=== PATIENT | male | born 1975 | race Two or more races ===

== ENCOUNTER → 2017-11-01 20:15 | Outpatient (REF) | payer SELFPAY | LOC: LAB 20:15 | PROVIDERS: Visit Provider Nurse Practitioner Family ==

== ENCOUNTER 2018-03-24 10:07 | Inpatient (IN) ==
--- NOTE | 2018-03-24 10:35 | Emergency Department Note ---
ED Disposition Clinical Impression: Acute appendicitis Qualifiers: Acute appendicitis type: with localized peritonitis Qualified Code(s): K35.3 - Acute appendicitis with localized peritonitis Disposition: Admitted as Observation Condition on Discharge: Fair Instructions: DI for Acute Abdomen Additional Instructions: Discussed his case with Dr. Mandel who is the surgeon contract recruiter for today and he will see the patient in the emergency room and make the appropriate disposition Time of Disposition: 11:21 - Critical Care Critical Care Time: No Attestation: On , the high probability of a clinically significant, sudden or life threatening deterioration of the following system(s) required my full and direct attention, intervention and personal management. The time I documented below is in addition to time spent performing reported procedures but includes the following listed in this critical care notation. Medical Decision Making - Medical Records Medical records reviewed: Yes: I reviewed the patient's medical records. - Justen Inquiry Pt receiving controlled substance: No Justen was queried for this patient: No Vital Signs: 03/24/18 10:17 Temperature 98.2 F Temperature Source Oral Pulse Rate [Right Brachial] 95 H Respiratory Rate 16 Blood Pressure [Right Arm] 137/78 Blood Pressure Mean [Right Arm] 97 Blood Pressure Source [Right Arm] Automatic Cuff Blood Pressure Position [Right Arm] Sitting 02 Sat by Pulse Oximetry 100 Oxygen Delivery Method Room Air - Lab Data Lab results reviewed: Yes: I reviewed the patient's lab results. Lab Results 03/24/18 10:34: Urine Color Yellow, Urine Appearance Clear, Urine pH 6.0, Ur Specific [place] 1.010, Urine Protein Negative, Urine Glucose (UA) Negative, Urine Ketones Negative, Urine Blood 1+, Urine Nitrate Negative, Urine Bilirubin Negative, Urine Urobilinogen 0.2, Ur Leukocyte Esterase Negative, Urine RBC Occasional, Urine WBC Occasional, Urine Bacteria 2+, Urine Mucus 3+ 03/24/18 10:34: WBC 17.4 H, RBC 5.43, Hgb 16.7, Hct 49.8, MCV 91.7, MCH 30.8, MCHC 33.6, RDW 12.6, Plt Count 428 H, MPV 7.2 L, Neut % (Auto) 83.7 H, Lymph % ( Auto) 12.1, [place] % (Auto) 2.7, Eos % (Auto) 1.0, Baso % (Auto) 0.4, Neut # (Auto ) 14.6 H, Lymph # (Auto) 2.1, [place] # (Auto) 0.5, Eos # (Auto) 0.2, Baso # (Auto ) 0.1, Total Counted 100, Neutrophils % (Manual) 79 H, Lymphocytes % (Manual) 15 , Atypical Lymphs % 4.0, Monocytes % (Manual) 2, Platelet Estimate Normal, RBC Morphology Normal 03/24/18 10:34: Sodium 136, Potassium 4.2, Chloride 100, Carbon Dioxide 27, Anion Gap 13.2, BUN 11, Creatinine 1.04, Estimated Creat Clear 82, Estimated GFR 78, Est GFR ( Amer) 94, Glucose 128 H, Calcium 9.4 Result diagrams: 03/24/18 10:34 03/24/18 10:34 Orders (Tests/Meds): ED MEDICATIONS Generic Name Dose Route Start Last Admin Trade Name Freq PRN Reason Stop Dose Admin Sodium Chloride 1,000 mls @ 999 mls/hr 03/24/18 10:30 03/24/18 10:39 Sod Chlor 0.9% 1000ml Bag IV 03/24/18 11:30 999 mls/hr .Q1H1M ROZ Administration ORDERS Category Date Time Status CT abdomen pelvis wo con Stat Cat Scan 03/24/18 10:25 Taken Urine Culture Stat Micro 03/24/18 10:34 Received - CT Data CT Scan: Abdomen, Pelvis Time Received: 11:[address] Reviewed: Yes: I have reviewed the patient's CT results, I discussed the CT results w/the radiologist, I have viewed the radiologist's interpretation Findings Narrative: Patient has acute appendicitis Abdominal Pain HPI - General Chief Complaint: Abdominal Pain Stated Complaint: Abdominal pain Time Seen by Provider: 03/24/18 10:30 Mode of Arrival: Family Vehicle Limitations: No Limitations Description of Symptoms (Recalled from ER Triage Doc. by RN): C/O EPIGASTRIC PAIN LAST PM BUT TODAY HAS C/O RLQ TENDERNESS WITH PALPATION. DENIES N/V/D - History of Present Illness HPI narrative: Patient is a 41-year-old gentleman who comes in with complaints of epic epigastric pain that started 3 days ago last night however the pain moved into the right lower quadrant he has had no nausea vomiting or diarrhea and has had no fevers but comes to the emergency room today with pain primarily in the right lower quadrant with no rebound or guarding he is also afebrile complaint: abdominal pain Onset (ago): hour(s) Consistency: constant Location: RLQ Severity: moderate Severity scale (1-10): 5 - Related Data Home Medications Medication Instructions Recorded Confirmed No Known Home Medications 11/01/17 03/24/18 Allergies Allergy/AdvReac Type Severity Reaction Status Date / Time No Known Allergies Allergy Verified 11/01/17 18:05 [facility] History I have reviewed the patient's past medical history: Yes Medical History: Denies:: Cancer, Diabetes Mellitus Type 1, Diabetes Mellitus Type 2, MRSA Other Surgeries: Yes: No Previous Surgery Amputation: No - Social History Smoking Status: Never smoker Alcohol Intake: current Substance Use Type: denies use - Psychiatric History Expresses thoughts of harming self/others: None Suicide Plan Description: No Plan Family Hx:: Diabetes ROS Obtained: Yes All systems reviewed & no additional complaints - Constitutional Constitutional: Reports system reviewed and no additional complaints, except as docu, Reports as per HPI - Gastrointestinal Gastrointestingal: Reports: system reviewed and no additional complaints, except as docu, as per HPI Physical Exam - General General appearance: alert, in no apparent distress - Head Head exam: atraumatic - Eye Eye exam: Present: normal appearance - ENT ENT exam: Present: normal exam - Neck Neck exam: Present: normal inspection - Chest Chest inspection: Present: normal inspection - Respiratory Respiratory exam: Present: normal lung sounds bilaterally - Cardiovascular Cardiovascular exam: Present: regular rate, normal rhythm - Abdominal Exam Abdominal exam: Present: soft, normal bowel sounds Abdominal tenderness: Present: RLQ - Extremities Exam Extremities exam: Present: normal inspection - Neurological Exam Neurological exam: Present: alert, oriented X3
[2018-03-24 10:41] LABS: Microscopic, Urine URINE MICROSCOPIC (MICROSCOPIC)
[2018-03-24 10:44] LABS: Appearance,Urine CLEAR (Clear); Bilirubin,Urine Negative (Negative); Blood, Urine 1+ (Negative); Color,Urine YELLOW (Yellow); Glucose,Urine (UA) Negative (Negative); Ketones,Urine Negative (Negative); Leukocyte Esterase,Urine Negative (Negative); Protein,Urine Negative (Negative); Urobilinogen,Urine 0.2 EU/dl (0.2)
[2018-03-24 10:46] LABS: Basophils # 0.1 K/mm3 (0-0.2); Basophils % 0.4 % (0.1-2.0); Eosinophils # 0.2 K/mm3 (0.0-0.4); Hematocrit 49.8 % (42.0-52.0); Hemoglobin 16.7 g/dL (14.1-18.0); Lymphocytes # 2.1 K/mm3 (0.7-4.5); Lymphocytes % 12.1 K/mm3 (10-50); Mean Corpuscular HGB Conc 33.6 g/dL (31.8-35.4); Mean Corpuscular Hemoglobin 30.8 pg (27.0-31.2); Mean Corpuscular Volume 91.7 fl (80-94); Mean Platelet Volume 7.2 fl (7.4-10.4); Monocytes # 0.5 K/mm3 (0.1-1.0); Monocytes % 2.7 % (1.7-9.3); Neutrophils # 14.6 K/mm3 (1.8-7.8); Neutrophils % 83.7 % (37.0-80.0); Platelet Count 428 K/mm3 (142-424); Red Blood Count 5.43 M/mm3 (4.60-6.20); Red Cell Distribution Width 12.6 % (11.5-17.5); White Blood Count 17.4 K/mm3 (4.8-10.8)
[2018-03-24 10:52] LABS: Bacteria,Urine 2+ /lpf; Mucus,Urine 3+ /lpf; RBC,Urine Occasional #/hpf (0-3); WBC,Urine Occasional #/hpf (0-3)
[2018-03-24 10:53] LABS: Anion Gap 13.2 mEq/L (5-15); Calcium 9.4 mg/dL (8.5-10.1); Potassium 4.2 mmoL/L (3.5-5.1)
[2018-03-24 11:08] LABS: Lymphocytes % 15 % (10-50); Monocytes % 2 % (2-9); Neutrophils % 79 % (42-76); RBC Morphology Normal; Total Cells Counted 100
[2018-03-24 11:38] LABS: Activated Partial Thrombo Time 34.7 seconds (23.6-34.0); INR 1.31 (0.9-1.1); Prothrombin Time 13.4 seconds (9.4-11.8)
--- NOTE | 2018-03-24 12:08 | Progress Note ---
[facility] Anesthesia Checklist - Structural Data Admitted From: Home Planned Operative Procedure/s: appy Consent for Planned Operative Procedure(s) Verified: Yes - Airway Assessment C-Spine Mobility Assessed: Yes TMJ Mobility Assessed: Yes Dentition: Good Dentition - Neurological Assessment Level of Consciousness: Awake, Alert, Appropriate - Anesthesia Plan Anesthesia Risk discussed: Yes Anesthesia Plan: Verified ASA Class: I Anesthesia Type: General [facility] Anesthesia HX I have reviewed the patient's past medical history: Yes Medical History: Denies:: Cancer, Diabetes Mellitus Type 1, Diabetes Mellitus Type 2, MRSA Other Surgeries: Yes: No Previous Surgery Amputation: No *Family Hx:: Diabetes
--- NOTE | 2018-03-24 12:19 | History & Physical Report ---
HPI HPI: ABDOMINAL PAIN Patient is a 42-year-old male. He had developed midepigastric abdominal pain this morning. He presented to the emergency department where he was seen and evaluated. Found to have a mild leukocytosis. He had CT scan which revealed findings consistent with obvious appendicitis. Surgical consultation was obtained. Patient states that his symptoms have actually improved. [facility] History Medical History: Denies:: Cancer, Diabetes Mellitus Type 1, Diabetes Mellitus Type 2, MRSA Other Surgeries: Yes: No Previous Surgery Amputation: No - *Social History Smoking Status: Never smoker Alcohol Intake: current Substance Use Type: denies use - Psychiatric History Expresses thoughts of harming self/others: None Suicide Plan Description: No Plan *Family Hx:: Diabetes Review of Systems - Review of Systems Review of systems:: pertinent systems reviewed and negative unless documented below Meds Home Medications Medication Instructions Recorded Confirmed Type No Known Home Medications 11/01/17 03/24/18 History Allergies Allergy/AdvReac Type Severity Reaction Status Date / Time No Known Allergies Allergy Verified 11/01/17 18:05 Exam Vital signs and Labs for Last 24 Hours: Temp Pulse Resp BP Pulse Ox 98.2 F 85 18 145/80 100 03/24/18 10:17 03/24/18 11:46 03/24/18 11:46 03/24/18 11:46 03/24/18 11:46 Laboratory Results - last 24 hr 03/24/18 10:34: Urine Color Yellow, Urine Appearance Clear, Urine pH 6.0, Ur Specific [place] 1.010, Urine Protein Negative, Urine Glucose (UA) Negative, Urine Ketones Negative, Urine Blood 1+, Urine Nitrate Negative, Urine Bilirubin Negative, Urine Urobilinogen 0.2, Ur Leukocyte Esterase Negative, Urine RBC Occasional, Urine WBC Occasional, Urine Bacteria 2+, Urine Mucus 3+ 03/24/18 10:34: WBC 17.4 H, RBC 5.43, Hgb 16.7, Hct 49.8, MCV 91.7, MCH 30.8, MCHC 33.6, RDW 12.6, Plt Count 428 H, MPV 7.2 L, Neut % (Auto) 83.7 H, Lymph % ( Auto) 12.1, [place] % (Auto) 2.7, Eos % (Auto) 1.0, Baso % (Auto) 0.4, Neut # (Auto ) 14.6 H, Lymph # (Auto) 2.1, [place] # (Auto) 0.5, Eos # (Auto) 0.2, Baso # (Auto ) 0.1, Total Counted 100, Neutrophils % (Manual) 79 H, Lymphocytes % (Manual) 15 , Atypical Lymphs % 4.0, Monocytes % (Manual) 2, Platelet Estimate Normal, RBC Morphology Normal 03/24/18 10:34: Sodium 136, Potassium 4.2, Chloride 100, Carbon Dioxide 27, Anion Gap 13.2, BUN 11, Creatinine 1.04, Estimated Creat Clear 82, Estimated GFR 78, Est GFR ( Amer) 94, Glucose 128 H, Calcium 9.4 03/24/18 10:34: PT 13.4 H, INR 1.31 H, APTT 34.7 H I & O for Last 24 hours: Intake & Output 03/22/18 03/23/18 03/24/18 03/25/18 11:59 11:59 11:59 11:59 Weight 140 lb - Constitutional no acute distress - *Routine HEENT Exam Head: Present: normocephalic - *Routine Respiratory Exam Present: CTA bilaterally - *Routine Cardiovascular Exam Present: RRR - *Routine Abdominal Exam Present: soft, tenderness Comments: He does have some tenderness without guarding or rebound in the right lower quadrant. Results - Results Lab Results Last 24 Hours:: Laboratory Results - last 24 hr 03/24/18 10:34: Urine Color Yellow, Urine Appearance Clear, Urine pH 6.0, Ur Specific [place] 1.010, Urine Protein Negative, Urine Glucose (UA) Negative, Urine Ketones Negative, Urine Blood 1+, Urine Nitrate Negative, Urine Bilirubin Negative, Urine Urobilinogen 0.2, Ur Leukocyte Esterase Negative, Urine RBC Occasional, Urine WBC Occasional, Urine Bacteria 2+, Urine Mucus 3+ 03/24/18 10:34: WBC 17.4 H, RBC 5.43, Hgb 16.7, Hct 49.8, MCV 91.7, MCH 30.8, MCHC 33.6, RDW 12.6, Plt Count 428 H, MPV 7.2 L, Neut % (Auto) 83.7 H, Lymph % ( Auto) 12.1, [place] % (Auto) 2.7, Eos % (Auto) 1.0, Baso % (Auto) 0.4, Neut # (Auto ) 14.6 H, Lymph # (Auto) 2.1, Kay # (Auto) 0.5, Eos # (Auto) 0.2, Baso # (Auto ) 0.1, Total Counted 100, Neutrophils % (Manual) 79 H, Lymphocytes % (Manual) 15 , Atypical Lymphs % 4.0, Monocytes % (Manual) 2, Platelet Estimate Normal, RBC Morphology Normal 03/24/18 10:34: Sodium 136, Potassium 4.2, Chloride 100, Carbon Dioxide 27, Anion Gap 13.2, BUN 11, Creatinine 1.04, Estimated Creat Clear 82, Estimated GFR 78, Est GFR ( Amer) 94, Glucose 128 H, Calcium 9.4 03/24/18 10:34: PT 13.4 H, INR 1.31 H, APTT 34.7 H Assessment and Plan - Assessment and plan all Dx Assessment and Plan for all problems:: After examining the patient I reviewed his CT scan with the radiologist. He has findings consistent with obvious appendicitis with 13 mm thickened appendix with multiple appendicoliths and periappendiceal stranding. I discussed the nature of this condition with the patient and advocate appendectomy. Plan for laparoscopic with possibly open appendectomy.
--- NOTE | 2018-03-24 16:31 | Progress Note ---
[facility] Anesthesia Record Part I Intake, IV Amount: 3,200 Estimated blood loss (mL): 300 Urine output (mL): 800 Blood Pressure: 136/76 SaO2: 100 Pulse Rate: 95 Respiratory Rate: 12 Temperature: 98.2 F Patient is:: Drowsy, Stable Stable to PACU at:: 16:25
--- NOTE | 2018-03-24 16:31 | Progress Note ---
[facility] Anesthesia Record Part II Discharge Time: 16:55 Destination: floor PACU nurse assessment reviewed?: Yes Patient Condition:: Good Anesthesia Complications:: None
--- NOTE | 2018-03-24 16:39 | Operative Note ---
Date of procedure: 03/24/18 Pre-op Diagnosis:: Acute appendicitis Post-op Diagnosis:: Same Procedure performed:: 1. Laparoscopy 2. Open appendectomy 3. ileal cecal resection with ileocolonic anastomosis Surgeon:: Forrest Mandel MD EDI PROGRAMMER:: Fransisco Jimenez Anesthesia: GETA Estimated blood loss (mL): 100 Clinical Note:: Patient is a 42-year-old male. He had developed some epigastric tenderness for a couple of days. Became more severe. He had some migration to the right lower quadrant. He presented to the emergency department. He was seen and evaluated and found to have moderate leukocytosis. He had CT scan performed which revealed findings consistent with obvious significant acute appendicitis. Surgical consultation was obtained. Patient was seen and examined. Arrangements were made for emergent laparoscopic possibly open appendectomy. Operative findings:: He had a severely inflamed markedly thickened indurated suppurative appendicitis. Inflammation was down to and involving the cecum with a presumed very large palpable appendicolith impacted within the appendiceal orifice involving the cecum. Operative note:: Consent was obtained patient was taken to the operating room. He was given preoperative intravenous antibiotics. In the operating room he was placed in a supine position. General anesthesia was induced via endotracheal tube. Singh catheter was placed. Abdomen was prepped and draped in the standard surgical fashion. Subumbilical skin incision was made and will perform abdominal wall left Veress needle was inserted. CO2 pneumoperitoneum was achieved to 15 mmHg. 12 mm optical trocar was inserted at the umbilicus. Intraperitoneal contents were visualized. 5 mm trocar was inserted under laparoscopic visualization in the suprapubic location. Additional 5 mm trocar was inserted in the right upper abdomen. 10 mm laparoscope was replaced with a 5 mm angled laparoscope. Appendix was easily identified and found to be markedly thickened, edematous, indurated and suppurative. It was very tense and grasping the appendix with Cesar was quite difficult. Appendix was somewhat corkscrewed upon itself and creating almost an inflammatory masslike effect. Prolonged dissection was carried out with some blunt dissection of the peritoneal attachments and use of CRISTI ultrasonic harmonic eleazar. Prolonged dissection was carried out dissecting down to the base of the appendix. The appendiceal artery was cauterized with Cristi ultrasonic harmonic eleazar. The appendix was inflamed at its base and markedly thickened. Palpation laparoscopically revealed almost a masslike effect within the appendiceal orifice consistent with presumed large appendicolith impacted within the appendiceal orifice and involving the cecum. Attempt was made to place a stapler across this but the inflammatory process was too thickened and stapling would likely create bowel obstruction with occlusion of the ileocecal valve. Plan was made for conversion to open. Transverse right lower quadrant incision was performed. Dissection was carried down through subcutaneous tissues and Katharine's fascia using electrocautery. Muscle-splitting technique was used opening the external oblique muscle, internal oblique muscle, and transversalis muscle along the length of their fibers. Peritoneum was incised. The appendix was identified once again. Attempt was made to mobilize the cecum with some difficulty. Attempt was made at open appendectomy using the TX 60 B type stapling device to remove the appendix with a cuff of cecum. This resulted in suboptimal outcome with somewhat devitalized cecum and colon enterotomy. Plan was made to proceed with ileocecal resection. Incision was extended medially incising the skin and rectus fascia to allow for mobilization. The ileum and cecum were further mobilized incising the peritoneum along the lateral edge of the colon. The terminal ileum was divided with a KISHOR-75 type stapling device. The colonic mesentery was clamped divided and ligated with Vicryl ties with double ligation of the ileocecal vascular bundle using 0 Surgilon ties. Colon was divided at the proximal ascending colon region. A [id number], functional end-to-end, anastomosis was created with a KISHOR-75 type stapling device creating an ileocolic anastomosis. Suture was placed at the confluence of staple lines as well as the staple line angle using 3 oh Surgilon seromuscular sutures. Inspection was carried out and there was no evidence of any appreciable mesenteric defect which would be amenable to closure. The peritoneal cavity was then irrigated with copious amounts of warm saline. A #10 NAYLA drain was placed along the right colon near the anastomosis through an incision inferior to the transverse right lower quadrant incision. It was secured with a 3-0 nylon suture. Peritoneum was closed with running 2-0 Vicryl. Muscle layers including dorsalis muscle, internal oblique, external oblique, and anterior rectus fascia were closed with running 0 PDS in layers. Katharine's fascia was closed with running 2-0 Vicryl. Irrigation was performed between each layer. Fascia at the umbilicus was closed with a 0 Vicryl suture. All incisions were closed with 4-0 Monocryl in a subcuticular fashion. Steri-Strips and drains were applied. Condition: stable Disposition: PACU Specimens:: Appendix Ileocecal resection (cecum) Complications:: None immediately apparent
[2018-03-25 05:58] LABS: Basophils % 0.2 % (0.1-2.0); Eosinophils # 0.1 K/mm3 (0.0-0.4); Eosinophils % 0.4 % (0.1-12.0); Hematocrit 41.1 % (42.0-52.0); Lymphocytes # 1.4 K/mm3 (0.7-4.5); Lymphocytes % 9.5 K/mm3 (10-50); Mean Corpuscular HGB Conc 32.9 g/dL (31.8-35.4); Mean Corpuscular Hemoglobin 30.4 pg (27.0-31.2); Mean Corpuscular Volume 92.3 fl (80-94); Mean Platelet Volume 7.1 fl (7.4-10.4); Monocytes # 1.1 K/mm3 (0.1-1.0); Monocytes % 7.1 % (1.7-9.3); Neutrophils # 12.2 K/mm3 (1.8-7.8); Neutrophils % 82.8 % (37.0-80.0); Platelet Count 350 K/mm3 (142-424); Red Blood Count 4.45 M/mm3 (4.60-6.20); Red Cell Distribution Width 12.7 % (11.5-17.5); White Blood Count 14.7 K/mm3 (4.8-10.8)
[2018-03-25 06:04] LABS: Anion Gap 10.8 mEq/L (5-15); Potassium 3.8 mmoL/L (3.5-5.1)
[2018-03-25 06:09] LABS: Hemoglobin 13.5 g/dL (14.1-18.0)
[2018-03-25 06:19] LABS: Calcium 8.4 mg/dL (8.5-10.1)
--- NOTE | 2018-03-25 06:59 | Progress Note ---
Subjective Patient reports: still having pain Narrative: Patient having some pain. No nausea. NG functioning. Exam Vital signs and Labs for Last 24 Hours: Temp Pulse Resp BP Pulse Ox 98.3 F 98 H 16 106/68 99 03/25/18 04:00 03/25/18 04:00 03/25/18 04:00 03/25/18 04:00 03/25/18 04:00 Laboratory Results - last 24 hr 03/24/18 10:34: Urine Color Yellow, Urine Appearance Clear, Urine pH 6.0, Ur Specific [place] 1.010, Urine Protein Negative, Urine Glucose (UA) Negative, Urine Ketones Negative, Urine Blood 1+, Urine Nitrate Negative, Urine Bilirubin Negative, Urine Urobilinogen 0.2, Ur Leukocyte Esterase Negative, Urine RBC Occasional, Urine WBC Occasional, Urine Bacteria 2+, Urine Mucus 3+ 03/24/18 10:34: WBC 17.4 H, RBC 5.43, Hgb 16.7, Hct 49.8, MCV 91.7, MCH 30.8, MCHC 33.6, RDW 12.6, Plt Count 428 H, MPV 7.2 L, Neut % (Auto) 83.7 H, Lymph % ( Auto) 12.1, [place] % (Auto) 2.7, Eos % (Auto) 1.0, Baso % (Auto) 0.4, Neut # (Auto ) 14.6 H, Lymph # (Auto) 2.1, [place] # (Auto) 0.5, Eos # (Auto) 0.2, Baso # (Auto ) 0.1, Total Counted 100, Neutrophils % (Manual) 79 H, Lymphocytes % (Manual) 15 , Atypical Lymphs % 4.0, Monocytes % (Manual) 2, Platelet Estimate Normal, RBC Morphology Normal 03/24/18 10:34: Sodium 136, Potassium 4.2, Chloride 100, Carbon Dioxide 27, Anion Gap 13.2, BUN 11, Creatinine 1.04, Estimated Creat Clear 82, Estimated GFR 78, Est GFR ( Amer) 94, Glucose 128 H, Calcium 9.4 03/24/18 10:34: PT 13.4 H, INR 1.31 H, APTT 34.7 H 03/24/18 13:00: Urine Color Yellow, Urine Appearance Clear, Urine pH 6.0, Ur Specific [place] 1.010, Urine Protein Negative, Urine Glucose (UA) Negative, Urine Ketones Trace, Urine Blood Trace, Urine Nitrate Negative, Urine Bilirubin Negative, Urine Urobilinogen 0.2, Ur Leukocyte Esterase Negative, Urine WBC Occasional, Urine Bacteria Trace 03/25/18 05:44: WBC 14.7 H, RBC 4.45 L, Hgb 13.5 L D, Hct 41.1 L, MCV 92.3, MCH 30.4, MCHC 32.9, RDW 12.7, Plt Count 350, MPV 7.1 L, Neut % (Auto) 82.8 H, Lymph % (Auto) 9.5 L, [place] % (Auto) 7.1, Eos % (Auto) 0.4, Baso % (Auto) 0.2, Neut # (Auto) 12.2 H, Lymph # (Auto) 1.4, [place] # (Auto) 1.1 H, Eos # (Auto) 0.1 , Baso # (Auto) 0.0 03/25/18 05:44: Sodium 136, Potassium 3.8, Chloride 102, Carbon Dioxide 27, Anion Gap 10.8, BUN 7 D, Creatinine 0.96, Estimated Creat Clear 90, Estimated GFR 85, Est GFR ( Amer) 103, Glucose 151 H, Calcium 8.4 L D I & O for Last 24 hours: Intake & Output 03/22/18 03/23/18 03/24/18 03/25/18 11:59 11:59 11:59 11:59 Intake Total 4815 / 4815 Output Total 1600 / 1600 Balance 3215 / 3215 Weight 140 lb 142 lb 1 oz - *Routine Abdominal Exam Present: soft Comments: Dressings intact. NAYLA with serosanguineous drainage. Progress Note: A&P Assessment and Plan for All Diagnoses:: SHANNAN morfin. Continue IV Invanz for at least 5 days.
--- NOTE | 2018-03-25 07:26 | Pharmacy Consult Notes ---
[facility] Pharmacy VTE Monitoring - Patient Demographics Admission date: 03/24/18 Report Date: 03/25/18 Time: 07:26 Allergies/Adverse Reactions: Patient Allergies No Known Allergies Allergy (Verified 11/01/17 18:05) Height: 1.75 m Weight: 64.438 kg Patient Problems: Current Active Problems Acute appendicitis (Acute) - VTE Risk Labs: VTE Related Lab Results Hgb 13.5 g/dL (14.1-18.0) L D 03/25/18 05:44 Hct 41.1 % (42.0-52.0) L 03/25/18 05:44 Plt Count 350 K/mm3 (142-424) 03/25/18 05:44 PT 13.4 seconds (9.4-11.8) H 03/24/18 10:34 INR 1.31 (0.9-1.1) H 03/24/18 10:34 APTT 34.7 seconds (23.6-34.0) H 03/24/18 10:34 BUN 7 mg/dL (7-18) D 03/25/18 05:44 Creatinine 0.96 mg/dL (0.70-1.30) 03/25/18 05:44 Estimated Creat Clear 90 mL/min (0-300) 03/25/18 05:44 Was VTE Risk Assessment Performed: Yes VTE Score: 2 VTE Risk Level: Very Low Risk - Prophylaxis VTE Prophylaxis Ordered?: Yes Types of VTE Prophylaxis: TEDS Knee High Location of Applied Device: Bilateral Lower Extremeties - VTE Diagnosis Confirmed Treatment or plan recommended: Continue Current Treatment
[2018-03-26 06:34] LABS: Anion Gap 4.6 mEq/L (5-15); Potassium 3.6 mmoL/L (3.5-5.1)
[2018-03-26 06:35] LABS: Calcium 8.7 mg/dL (8.5-10.1)
[2018-03-26 06:43] LABS: Basophils # 0.1 K/mm3 (0-0.2); Basophils % 0.5 % (0.1-2.0); Eosinophils # 0.1 K/mm3 (0.0-0.4); Eosinophils % 0.6 % (0.1-12.0); Hematocrit 40.8 % (42.0-52.0); Hemoglobin 13.3 g/dL (14.1-18.0); Lymphocytes # 1.8 K/mm3 (0.7-4.5); Lymphocytes % 11.9 K/mm3 (10-50); Mean Corpuscular HGB Conc 32.7 g/dL (31.8-35.4); Mean Corpuscular Hemoglobin 30.4 pg (27.0-31.2); Mean Platelet Volume 7.4 fl (7.4-10.4); Monocytes # 0.9 K/mm3 (0.1-1.0); Neutrophils # 12.3 K/mm3 (1.8-7.8); Platelet Count 390 K/mm3 (142-424); Red Blood Count 4.39 M/mm3 (4.60-6.20); Red Cell Distribution Width 12.7 % (11.5-17.5); White Blood Count 15.2 K/mm3 (4.8-10.8)
--- NOTE | 2018-03-26 07:02 | Progress Note ---
Subjective Patient reports: no new complaints Exam Vital signs and Labs for Last 24 Hours: Temp Pulse Resp BP Pulse Ox 99.1 F 88 20 133/65 98 03/26/18 04:00 03/26/18 04:00 03/26/18 04:00 03/26/18 04:00 03/26/18 04:00 Laboratory Results - last 24 hr 03/26/18 06:06: WBC 15.2 H, RBC 4.39 L, Hgb 13.3 L, Hct 40.8 L, MCV 93.0, MCH 30.4, MCHC 32.7, RDW 12.7, Plt Count 390, MPV 7.4, Neut % (Auto) 81.0 H, Lymph % (Auto) 11.9, [place] % (Auto) 6.0, Eos % (Auto) 0.6, Baso % (Auto) 0.5, Neut # ( Auto) 12.3 H, Lymph # (Auto) 1.8, [place] # (Auto) 0.9, Eos # (Auto) 0.1, Baso # ( Auto) 0.1 03/26/18 06:06: Sodium 137, Potassium 3.6, Chloride 100, Carbon Dioxide 36 H D, Anion Gap 4.6 L, BUN 11 D, Creatinine 0.90, Estimated Creat Clear 96, Estimated GFR 92, Est GFR ( Amer) 111, Glucose 108 H, Calcium 8.7 I & O for Last 24 hours: Intake & Output 03/23/18 03/24/18 03/25/18 03/26/18 11:59 11:59 11:59 11:59 Intake Total 4815 / 4815 2673 / 2673 Output Total 2029 / 2029 2985 / 2985 Balance 2785 / 2785 -312 / -312 Weight 140 lb 142 lb 1 oz Microbiology Reports for the Last 24 Hours: Microbiology 03/24/18 10:34 Urine,Clean Catch Urine Culture - Preliminary NO GROWTH AFTER 24 HOURS - *Routine Abdominal Exam Present: soft Comments: Hypoactive bowel sounds. Progress Note: A&P Assessment and Plan for All Diagnoses:: NG with large output overnight (1700mL). No flatus. NAYLA with serosanguineous drainage. Will give cepacol for sore throat. Continue antibiotics.
[2018-03-26 09:58] LABS: Lymphocytes % 9 % (10-50); Monocytes % 15 % (2-9); Neutrophils % 75 % (42-76); Total Cells Counted 100
[2018-03-26 10:00] LABS: RBC Morphology Normal
--- NOTE | 2018-03-27 08:35 | Progress Note ---
Subjective Patient reports: no new complaints, no flatus Exam Vital signs and Labs for Last 24 Hours: Temp Pulse Resp BP Pulse Ox 98.4 F 93 H 18 116/63 97 03/27/18 07:28 03/27/18 07:28 03/27/18 07:28 03/27/18 07:28 03/27/18 07:28 Laboratory Results - last 24 hr 03/26/18 06:06: Total Counted 100, Neutrophils % (Manual) 75, Band Neutrophils % 1.0, Lymphocytes % (Manual) 9 L, Monocytes % (Manual) 15 H, Platelet Estimate Normal, RBC Morphology Normal I & O for Last 24 hours: Intake & Output 03/24/18 03/25/18 03/26/18 03/27/18 11:59 11:59 11:59 11:59 Intake Total 4815 / 4815 2673 / 2673 2970.3 / 2970.3 Output Total 2029 / 2029 2985 / 2985 205 / 5 Balance 2785 / 2785 -312 / -312 915.3 / 915.3 Weight 140 lb 142 lb 1 oz Microbiology Reports for the Last 24 Hours: Microbiology 03/24/18 10:34 Urine,Clean Catch Urine Culture - Final NO GROWTH AFTER 48 HOURS - *Routine Abdominal Exam Present: distended Comments: NAYLA with serosanguineous Progress Note: A&P Assessment and Plan for All Diagnoses:: Still with apparent ileus. High NG output yesterday. Minimal overnight. Will give simethicone and reglan.
--- NOTE | 2018-03-28 08:08 | Progress Note ---
Subjective Patient reports: feels better Narrative: Patient states he has had a couple of bowel movements. Minimal NG output. Exam Vital signs and Labs for Last 24 Hours: Temp Pulse Resp BP Pulse Ox 98.4 F 73 16 109/63 99 03/28/18 04:00 03/28/18 04:00 03/28/18 04:00 03/28/18 04:00 03/28/18 04:00 I & O for Last 24 hours: Intake & Output 03/25/18 03/26/18 03/27/18 03/28/18 11:59 11:59 11:59 11:59 Intake Total 4815 / 4815 2673 / 2673 2970.3 / 2970.3 Output Total 2029 / 2029 2985 / 2985 2055 / 2055 2235 / 2235 Balance 2785 / 2785 -312 / -312 915.3 / 915.3 -2235 / -2235 Weight 142 lb 1 oz - *Routine Abdominal Exam Present: soft Progress Note: A&P Assessment and Plan for All Diagnoses:: DC NG tube.
--- NOTE | 2018-03-28 09:54 | Progress Note ---
Internal Medicine - PN: Subj *Date: 03/28/18 *Time: 09:53 Exam Vital signs and Labs for Last 24 Hours: Temp Pulse Resp BP Pulse Ox 98.4 F 84 16 129/82 98 03/28/18 08:00 03/28/18 08:00 03/28/18 08:00 03/28/18 08:00 03/28/18 08:00 I & O for Last 24 hours: Intake & Output 03/25/18 03/26/18 03/27/18 03/28/18 23:59 23:59 23:59 23:59 Intake Total 2956 / 2956 3083.3 / 3083.3 1219 / 1219 0 / 0 Output Total 3225 / 3225 3635 / 3635 2185 / 2185 210 / 210 Balance -269 / -269 -551.7 / -551.7 -966 / -966 -210 / -210 Weight 64.438 kg The patient's infection will respond to the chosen ABx?: Yes Is the patient receiving the right drug, dose, and route?: Yes Could a more targeted ABx be ordered?: No
[2018-03-29 11:47] VITALS: BP 126/77
== END 2018-03-29 14:35 | disposition home or self-care (01) ==
LOC: ER 10:07 → SDC 12:09 → 2ND 16:37
PROVIDERS: ADMIT Surgery; ATTEND Surgery

== ENCOUNTER → 2018-07-31 07:07 | Outpatient (CLI) | payer OTHER, SELFPAY ==
[2018-08-03 21:44] LABS: H. pylori Stool Ag, EIA Positive (Negative)
== END ==
PROVIDERS: Visit Provider Surgery
DX: R10.9 Unspecified abdominal pain (principal)
CPT/HCPCS: 87338

== ENCOUNTER → 2018-09-01 07:36 | Outpatient (CLI) | payer OTHER, SELFPAY ==
[2018-09-01 07:43] LABS: Adenovirus F 40/41, stool Not Detected (NotDetected); Astrovirus Not Detected (NotDetected); Campylobacter Not Detected (NotDetected); Clostridium Difficile A/B, PCR Not Detected (NotDetected); Cryptosporidium Not Detected (NotDetected); Cyclospora Cayetanesis Not Detected (NotDetected); Entamoeba histolytica Not Detected (NotDetected); Enteroaggregative E coli Not Detected (NotDetected); Enteropathogenic E coli Not Detected (NotDetected); Enterotoxigenic E coli Not Detected (NotDetected); Giardia lamblia Not Detected (NotDetected); Norovirus Not Detected (NotDetected); Plesimonas Shigalloides, PCR Not Detected (NotDetected); Rotavirus A Not Detected (NotDetected); Salmonella, PCR Not Detected (NotDetected); Sapovirus Not Detected (NotDetected); Shiga-like toxin E coli Not Detected (NotDetected); Shigella Enterovasive E coli Not Detected (NotDetected); Vibrio Cholerae Not Detected (NotDetected); Vibrio, PCR Not Detected (NotDetected); Yersinia Entercolitica, PCR Not Detected (NotDetected)
== END ==
PROVIDERS: Visit Provider Surgery
DX: K27.9 Peptic ulcer, site unspecified, unspecified as acute or chronic, without hemorrhage or perforation (principal)
CPT/HCPCS: 87507

== ENCOUNTER → 2018-09-22 14:26 | Outpatient (CLI) | payer OTHER, SELFPAY ==
[2018-09-25 09:42] LABS: H. pylori Breath Test Negative (Negative)
== END ==
PROVIDERS: Visit Provider Surgery
DX: R10.11 Right upper quadrant pain (principal)
CPT/HCPCS: 83013

== ENCOUNTER → 2021-09-23 12:00 | Outpatient (CLI) | payer OTHER, SELFPAY ==
[2021-09-24 16:10] LABS: H. pylori Breath Test Negative (Negative)
== END ==
PROVIDERS: Visit Provider Nurse Practitioner Family
DX: R10.84 Generalized abdominal pain (principal)
CPT/HCPCS: 83013

== ENCOUNTER → 2021-11-15 16:41 | Outpatient (CLI) | payer SELFPAY | PROVIDERS: PCP Nurse Practitioner Family; Visit Provider Surgery | DX: Z01.812 Encounter for preprocedural laboratory examination (principal); Z11.52 Encounter for screening for COVID-19 ==

== ENCOUNTER 2021-11-17 12:17 | Day surgery (SDC) | payer OTHER, SELFPAY ==
[2021-11-15 17:30] VITALS: BMI 22.1
[2021-11-15 17:37] LABS: Coronavirus 19, PCR Not Detected (NotDetected); Influenza A, PCR Not Detected (NotDetected); Influenza B, PCR Not Detected (NotDetected)
[2021-11-17 12:46] VITALS: BP 137/88; PULSE 71; RESP 18; TEMP 36.4; O2SAT 100; BMI 22.1
--- NOTE | 2021-11-17 13:27 | HMH.ANESCL ---
[facility] Anesthesia Checklist - Structural Data Admitted From: Home Planned Operative Procedure/s: egd Consent for Planned Operative Procedure(s) Verified: Yes - Additional verifications Anesthesia Reactions: No - Airway Assessment C-Spine Mobility Assessed: Yes TMJ Mobility Assessed: Yes Dentition: Good Dentition - Neurological Assessment Level of Consciousness: Awake, Alert, Appropriate - Anesthesia Plan Anesthesia Risk discussed: Yes Anesthesia Plan: Verified ASA Class: II Anesthesia Type: MAC [facility] History I have reviewed the patient's past medical history: Yes Medical History: Denies:: Cancer, Diabetes Mellitus Type 1, Diabetes Mellitus Type 2, Hypertension, Internal Pacemaker, Lung Disease, MRSA, Seizures *Have you ever received a pneumonia vaccine?: No *Have you received a flu vaccine this season?: No Anesthesia experience/problems:: none Other Surgeries: Yes: No Previous Surgery, Appendectomy, Colonoscopy, Colon Resection, EGD. No: Pacemaker Amputation: No Fractures: No - *Social History Smoking Status: Never smoker Alcohol Intake: never Substance Use Type: denies use *Occupational Status:: employed Household Members: significant other, children *Travel in the last 8 weeks: None Family Hx:: Diabetes
--- NOTE | 2021-11-17 13:29 | HMH.GSHP ---
HPI HPI: Patient is a 45-year-old male referred by Juan Diego Charles for EGD. I have seen him in the past. In March 2018 he underwent ileocecal resection for very severe acute appendicitis. I had seen him again in the late 2017 after he had presented to the emergency department with left upper quadrant pain which she characterizes as burning and hot . At that time he did have positive H. pylori for which he was treated. He had also been complaining of some left lower quadrant burning pains at that time. He had been started on omeprazole. At that time he was stating that the left-sided abdominal pain seemed to be worse after he had a bowel movement. I performed upper endoscopy and colonoscopy on him on 11/11/2018. At that time he was found to have gastroesophageal junction at approximately 35 cm from the incisors. Gastric biopsy revealed chronic inactive gastritis , duodenal biopsy revealed mild peptic duodenitis. Gastroesophageal junction was normal. H. pylori was negative. Colonoscopy was unremarkable other than a tiny lymphoid aggregate in the sigmoid colon. Patient currently describes symptoms of acid buildup . He describes chest pressure. He states that it feels like it takes a while for his food to empty from his stomach. He does describe some abdominal pains along the entire right abdomen and along the entire left abdomen as a burning pain which seems to be worse after bowel movements. His symptoms have been longstanding but seem to be worse over the past several weeks. He has recently been changed to Nexium from omeprazole and this helps his symptoms somewhat more. Plan to proceed with EGD with biopsies. Unclear as to the etiology of the patient's symptoms. If EGD is relatively unremarkable he could require CT scan and possible gastric emptying scan, possible gastroenterology evaluation [facility] History I have reviewed the patient's past medical history: Yes Medical History: Denies:: Cancer, Diabetes Mellitus Type 1, Diabetes Mellitus Type 2, Hypertension, Internal Pacemaker, Lung Disease, MRSA, Seizures *Have you ever received a pneumonia vaccine?: No *Have you received a flu vaccine this season?: No Anesthesia experience/problems:: none Other Surgeries: Yes: No Previous Surgery, Appendectomy, Colonoscopy, Colon Resection, EGD. No: Pacemaker Amputation: No Fractures: No - *Social History Smoking Status: Never smoker Alcohol Intake: never Substance Use Type: denies use *Occupational Status:: employed Household Members: significant other, children *Travel in the last 8 weeks: None Family Hx:: Diabetes Review of Systems - Review of Systems Review of systems:: pertinent systems reviewed and negative unless documented below Meds Home Medications Medication Instructions Recorded Confirmed Type esomeprazole magnesium 20 mg 20 mg PO DAILY 09/28/21 11/15/21 History capsule,delayed release Allergies Allergy/AdvReac Type Severity Reaction Status Date / Time No Known Allergies Allergy Verified 11/15/21 09:52 Exam I & O for Last 24 hours: Intake & Output 11/15/21 11/16/21 11/17/21 11/18/21 11:59 11:59 11:59 11:59 Weight 125 lb - Constitutional no acute distress - *Routine HEENT Exam Head: Present: normocephalic Eye: Present: EOMI, PERRL ENT: Present: mucous membranes moist - *Routine Neck Exam Present: supple. Absent: lymphadenopathy - *Routine Respiratory Exam Present: CTA bilaterally - *Routine Cardiovascular Exam Present: RRR - *Routine Abdominal Exam Present: soft, normoactive bowel sounds. Absent: tenderness - *Routine Rectal Exam Rectal:: deferred - *Routine Genitalia Exam Genitalia:: deferred - *Routine Extremities Exam Absent: cyanosis, clubbing, edema - *Routine Skin Exam Present: warm. Absent: rash - *Routine Neurological Exam Present: alert, oriented X3 Assessment and Plan - Assessment and plan all Dx Assessment and Plan for all problems::
[2021-11-17 13:39] VITALS: O2SAT 100
--- NOTE | 2021-11-17 13:49 | P.PCN_ITS ---
- Procedure: Date: 11/17/21 Patient Date of :: 1975 Procedure Performed:: Esophagogastroduodenoscopy with biopsies Indications:: Patient is a 45-year-old male referred by Juan Diego Charles for EGD. I have seen him in the past. In March 2018 he underwent ileocecal resection for very severe acute appendicitis. I had seen him again in the late 2017 after he had presented to the emergency department with left upper quadrant pain which she characterizes as burning and hot . At that time he did have positive H. pylori for which he was treated. He had also been complaining of some left lower quadrant burning pains at that time. He had been started on omeprazole. At that time he was stating that the left-sided abdominal pain seemed to be worse after he had a bowel movement. I performed upper endoscopy and colonoscopy on him on 11/11/2018. At that time he was found to have gastroesophageal junction at approximately 35 cm from the incisors. Gastric biopsy revealed chronic inactive gastritis , duodenal biopsy revealed mild peptic duodenitis. G astroesophageal junction was normal. H. pylori was negative. Colonoscopy was unremarkable other than a tiny lymphoid aggregate in the sigmoid colon. Patient currently describes symptoms of acid buildup . He describes chest pressure. He states that it feels like it takes a while for his food to empty from his stomach. He does describe some abdominal pains along the entire right abdomen and along the entire left abdomen as a burning pain which seems to be worse after bowel movements. His symptoms have been longstanding but seem to be worse over the past several weeks. He has recently been changed to Nexium from omeprazole and this helps his symptoms somewhat more. Plan to proceed with EGD with biopsies. Unclear as to the etiology of the patient's symptoms. If EGD is relatively unremarkable he could require CT scan and possible gastric emptying scan, possible gastroenterology evaluation Performing Provider:: Forrest Mandel MD Referring Provider:: Juan Diego Charles Sedation:: MAC sedation Procedure:: Patient was taken to endoscopy procedure room. He was positioned in lateral decubitus position. Adequate intravenous sedation was achieved with anesthesia titration of propofol. Olympus endoscope was inserted via the oropharynx. Esophagus was cannulated. There was mild tortuosity of the esophagus possibly consistent with esophageal dysmotility. Gastroesophageal junction was encountered at approximately 36 cm from the incisors. Stomach was cannulated and insufflated. Retroflexion was performed which revealed no evidence of any appreciable hiatal hernia. There was some diffuse nonerosive gastropathy/gastritis. Antral biopsy was obtained for CLOtest for H. pylori. Pylorus was traversed. Duodenal bulb and sweep appeared normal. Biopsy was obtained within the duodenal bulb. A couple of gastric biopsies were obtained for histopathologic analysis. Biopsies were obtained at the gastroesophageal junction. Stomach was desufflated and the scope was withdrawn. Findings:: Gastroesophageal junction at approximately 36 cm Mild nonerosive diffuse gastropathy/gastritis Recommendations:: Plan to follow-up on the biopsies and H. pylori status and treat if appropriate. May need gastric emptying scan. May need gastroenterology evaluation. Complications:: None immediately apparent Estimated blood obtained (mL): 2
[2021-11-17 13:50] VITALS: BP 115/64; PULSE 66; RESP 16; TEMP 36.4; O2SAT 98
[2021-11-17 14:00] VITALS: BP 113/76; PULSE 62; RESP 16; O2SAT 98
[2021-11-17 14:10] VITALS: BP 133/85; PULSE 51; RESP 16; O2SAT 100
[2021-11-17 14:23] VITALS: BP 131/85; PULSE 60; RESP 16; TEMP 36.4; O2SAT 100
== END 2021-11-17 14:23 | disposition home or self-care (01) ==
LOC: OUTP 12:18
PROVIDERS: PCP Emergency Medicine; Visit Provider Surgery
PROC: 0DJ08ZZ Inspection of Upper Intestinal Tract, Via Natural or Artificial Opening Endoscopic (ICD-10-PCS; CPT 43235; principal; 2021-11-17 12:30)
DX: K29.60 Other gastritis without bleeding (principal); Z87.19 Personal history of other diseases of the digestive system; Z83.3 Family history of diabetes mellitus; Z79.899 Other long term (current) drug therapy
CPT/HCPCS: 43239; 87339; C9803; U0003; U0005